=== PATIENT | male | born 1975 | race Caucasian/White ===

== ENCOUNTER 2019-10-12 06:52 | Emergency (ER) | payer OTHER, SELFPAY ==
[2019-10-12 06:58] VITALS: BP 134/85; PULSE 87; RESP 20; TEMP 36.6; O2SAT 99
--- NOTE | 2019-10-12 07:07 | ED.GENADULT ---
HPI - General Adult General Chief complaint: Extremity Injury, Upper Stated complaint: messed my shoulder up Time Seen by Provider: 10/12/19 06:57 Source: patient Mode of arrival: ambulatory Limitations: no limitations History of Present Illness HPI narrative: Patient presents to the emergency department for evaluation of left shoulder pain. Shoulder pain began yesterday, after the patient had a fall on a construction site, landing with his left arm bent, and experiencing pain in his left shoulder. Patient has had good range of motion since yesterday, denies any numbness, does report some very mild tingling in the left hand. Patient is right-hand dominant. He denies head trauma or loss of consciousness. No neck, chest, back or abdominal pain. No difficulty with ambulation. Patient has been able to move the left shoulder, but reports pain is exacerbated when he tries to raise it above his head. He denies any bruising or deformity. No lacerations. No history of injury to the shoulder in the past. Related Data Allergies Allergy/AdvReac Type Severity Reaction Status Date / Time No Known Allergies Allergy Verified 10/12/19 07:07 Review of Systems Review of Systems: Narrative: CONSTITUTIONAL: Denies fever EYES: Denies visual changes CARDIOVASCULAR: Denies chest pain RESPIRATORY: Denies cough or dyspnea. GASTROINTESTINAL: Denies abdominal pain SKIN: Denies rash or itching. 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 HEAD: Normocephalic, atraumatic. EYES: 2+ PERRLA and EOMI. ENT: Nares clear, no rhinorrhea or epistaxis. Mucous membranes moist. NECK: Supple. No cervical midline tenderness. CHEST: Clear to auscultation. No respiratory distress. No chest wall tenderness. HEART: Regular rate and rhythm. No murmur heard. Normal peripheral pulses. ABDOMEN: Soft, nontender, nondistended, normal active bowel sounds. EXTREMITIES: No edema or deformity. Intact sensation over the deltoid. Full abduction to 90 degrees. Past 90 degrees does elicit some pain in the left shoulder. Internal and external rotation is intact without limitation. Strength is 5 out of 5 in the left upper extremity. No tenderness along the clavicle or scapula. Full flexion and extension of the left elbow without pain, no deformity. Radial pulses 2+. Intact sensation, median, ulnar, radial nerve distribution. SKIN: Warm, dry, no rash. NEURO: No focal deficits. Alert and oriented x3 Course Course Emergency Course: Patient with fall and seemingly has left shoulder strain/muscle impingement. Patient obviously not dislocated. He has intact internal nor external rotation. He has no osseous tenderness along the clavicle, scapula, cervical spine. Patient without other injury or complaints after the fall yesterday. Share decision-making occurred with patient, I do feels injury is consistent with partial rotator cuff injury, muscle impingement. Patient advised to take ibuprofen and Tylenol to help with pain. He declined an x-ray in the ER. I did explain that without an x-ray cannot definitively proven osseous injury, although I do suspect one is not likely. Patient was given prescription for ibuprofen and Tylenol, given PCP and orthopedic surgery follow-up should his symptoms persist. Vital Signs Vital signs: Vital Signs Temperature 36.6 C 10/12/19 06:58 Pulse Rate 87 10/12/19 06:58 Respiratory Rate 20 10/12/19 06:58 Blood Pressu
== END 2019-10-12 07:41 | disposition home or self-care (01) ==
LOC: ANHED 07:25
PROVIDERS: Emergency Provider Emergency Medicine
DX: S43.422A Sprain of left rotator cuff capsule, initial encounter (principal); F17.200 Nicotine dependence, unspecified, uncomplicated; W19.XXXA Unspecified fall, initial encounter
CPT/HCPCS: 99283

== ENCOUNTER 2020-02-23 16:21 | Emergency (ER) | payer SELFPAY ==
[2020-02-23 16:38] VITALS: BP 112/65; PULSE 75; RESP 16; TEMP 36.2; O2SAT 100
--- NOTE | 2020-02-23 16:49 | ED.GENADULT ---
HPI - General Adult General Chief complaint: Skin/Abscess/Foreign Body Stated complaint: RASH ON LEGS Time Seen by Provider: 02/23/20 16:49 Source: patient and RN notes reviewed Mode of arrival: ambulatory Limitations: no limitations History of Present Illness HPI narrative: This is a pleasant 44 years old male presented office for evaluation of recurrent skin lesion on his extremities and torso. He had this similar issue off and on for the last few years and sometimes, but most of the time he requires an antibiotic and prednisone. He contributed his lesions to being outside in the heat and sweaty. He does not have insurance to seek care from Derm or PCP. He has tried bleach baths in the past which make it worse. Admits to history of MRSA in the past. 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 Denies sick contact. Denies new medication, lotion or cloths. I reviewed patient's previous visit: History of Present Illness Date Seen by EDP: Jun 10, 2019 Time Seen by EDP: 16:50 Chief complaint: skin rash Dictation/Comment 44 year old male presents to express care with 2 week duration of scattered red papules and pustules on skin of chest, back, legs, arms which are itchy. Patient states that he recently changed bath soap from his normal dial to a cheap body shampoo just prior to breaking out with these lesions. Patient states that he has had this type of rash before and he was told that it was a form of a form of a folliculitis and he received some antibiotics and it cleared up states has had MRSA in past.Patient denies any known fevers, chill or sweats, states that he has taken some Tylenol for just generalized. 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 Mode of Arrival: Other Related Data Allergies Allergy/AdvReac Type Severity Reaction Status Date / Time No Known Allergies Allergy Verified 10/12/19 07:07 Review of Systems Review of Systems: Narrative: CONSTITUTIONAL: Denies fever or feeling ill ENT: Denies congestion CARDIOVASCULAR: Denies chest pain, palpitation RESPIRATORY: Denies dyspnea GASTROINTESTINAL: Denies abdominal pain, nausea, vomiting, diarrhea. GENITOURINARY: Denies urinary symptoms or penile lesions SKIN: Reports painful lesions that look like small pimples throughout his extremities, torso and upper arms. Reports lesions itchiness at times. 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 There is no relevant family history pertinent to the presenting complaint. Exam Narrative: Exam Narrative: GENERAL: This is a well-nourished, well-developed patient, in no apparent distress. THROAT: Mucous membranes moist, posterior pharynx clear. NECK: Neck supple, non-tender without lymphadenopathy, masses or thyromegaly. CARDIOVASCULAR: Regular rate and rhythm without murmurs, gallops, or rubs. RESPIRATORY: Clear to auscultation. Breath sounds equal bilaterally. No wheezes, rales, or rhonchi. GASTROINTESTINAL: Abdomen soft, non-tender, nondistended. Bowel sounds are active. No hepato-splenomegaly, or palpable masses. No guarding. SKIN: No rash on face, scatter mucular-erythema noted in front and back torso, lower extremities predominantly on his thighs noted scatter pustules and nodules lesion with slight tenderne
== END 2020-02-23 17:10 | disposition home or self-care (01) ==
PROVIDERS: Emergency Provider Nurse Practitioner
DX: L73.9 Follicular disorder, unspecified (principal); F17.210 Nicotine dependence, cigarettes, uncomplicated
CPT/HCPCS: 99213; G0463

== ENCOUNTER 2020-10-30 08:21 | Emergency (ER) | payer OTHER, SELFPAY ==
--- NOTE | 2020-10-30 08:28 | ED.SKABFB ---
HPI - Skin/Abscess/Foreign Bdy General Chief complaint: Skin/Abscess/Foreign Body Stated complaint: Rash Time Seen by Provider: 10/30/20 08:35 Source: patient, RN notes reviewed and old records reviewed Mode of arrival: ambulatory Limitations: no limitations History of Present Illness HPI narrative: 45-year-old male presents to [facility] with complaints of ongoing rash to his chest and axilla. first episode about 5 years ago. Was seen here 6 months ago approximately with the same complaint. Patient reports that after the clindamycin and the prednisone had cleared up for several weeks. Has been unable to follow-up with a primary or a pension agent due to insurance issues. Related Data Allergies Allergy/AdvReac Type Severity Reaction Status Date / Time No Known Allergies Allergy Verified 10/12/19 07:07 Review of Systems Review of Systems: Narrative: CONSTITUTIONAL: Denies fever, chills, or sweats. EYES: Denies visual changes, redness, or discharge. ENT: Denies rhinorrhea, congestion, sore throat, or otalgia. CARDIOVASCULAR: Denies chest pain, palpitations, or edema. RESPIRATORY: Denies cough or dyspnea. GASTROINTESTINAL: Denies abdominal pain, nausea, vomiting, or diarrhea. GENITOURINARY: Denies dysuria or hematuria. SKIN: Reports rash. Denies itching. MUSCULOSKELETAL: Denies back pain, joint pain, or myalgia. NEUROLOGIC: Denies headache, numbness, or weakness. PSYCHIATRIC: Denies anxiety or depression. All other systems reviewed are negative, except as documented in HPI. 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 There is no relevant family history pertinent to the patient complaint. Exam Narrative: Exam Narrative: GENERAL: This is a well-nourished, well-developed patient, in no apparent distress. HEAD: normocephalic, atraumatic. EYES: PERRL. Sclera clear/white. Vision is grossly intact. EARS: External ears normal. NECK: Neck supple, non-tender without lymphadenopathy, masses or thyromegaly. CARDIOVASCULAR: Regular rate and rhythm without murmurs, gallops, or rubs. RESPIRATORY: Clear to auscultation. Breath sounds equal bilaterally. No wheezes, rales, or rhonchi. GASTROINTESTINAL: Abdomen soft, non-tender, nondistended. Bowel sounds are active. No hepato-splenomegaly, or palpable masses. No guarding. SKIN: warm, intact. good texture and turgor. Chest and abdomen most scabbed over areas without fluctuance. 4 cm x 4 cm circular red area, warm to touch without firmness or fluctuant area. Left axilla 1 by half centimeter firm mildly fluctuant area noted. On his back and abdomen very dry flaky skin noted NEURO: awake, alert, and oriented to person, place and time. There were no obvious focal neurologic abnormalities. EXTREMITIES: No clubbing, cyanosis, or edema. BACK: Nontender without deformity. Course Vital Signs Vital signs: Vital Signs Temperature 96.7 F L 10/30/20 08:37 Pulse Rate 67 10/30/20 08:37 Respiratory Rate 16 10/30/20 08:37 Blood Pressure 125/75 10/30/20 08:37 Pulse Oximetry 99 10/30/20 08:37 Temperature 96.7 F L 10/30/20 08:37 Pulse Rate 67 10/30/20 08:37 Respiratory Rate 16 10/30/20 08:37 Blood Pressure 125/75 10/30/20 08:37 Pulse Oximetry 99 10/30/20 08:37 Reviewed, within defined limits Procedures Abscess I/D upper extremity: Date of Incision: 10/30/20 Time of Incision: 08:45 Side (if applicable): left Technique: needle aspiration Irrigation: No I&D Results: Pus and Blood Abcess I&D Additional Comments: Very minimal amount of pus from ne
[2020-10-30 08:37] VITALS: BP 125/75; PULSE 67; RESP 16; TEMP 35.9; O2SAT 99
== END 2020-10-30 08:55 | disposition home or self-care (01) ==
PROVIDERS: Emergency Provider Nurse Practitioner
DX: L73.9 Follicular disorder, unspecified (principal); L02.412 Cutaneous abscess of left axilla; F17.200 Nicotine dependence, unspecified, uncomplicated
CPT/HCPCS: 10160; 87070; 87075; 87147; 87186; 87205; 99213; G0463

== ENCOUNTER 2021-03-21 14:51 | Emergency (ER) | payer SELFPAY ==
[2021-03-21 14:59] VITALS: BP 113/67; PULSE 88; RESP 16; TEMP 36.4; O2SAT 99
[2021-03-21 15:04] VITALS: BP 113/67; PULSE 88; RESP 16; TEMP 36.4; O2SAT 99
--- NOTE | 2021-03-21 15:28 | ED.GENADULT ---
HPI - General Adult General Chief complaint: Skin/Abscess/Foreign Body Stated complaint: abscess stephanie legs/arms Time Seen by Provider: 03/21/21 15:28 Source: patient and RN notes reviewed Mode of arrival: ambulatory Limitations: no limitations History of Present Illness HPI narrative: 45-year-old male presents with complaints of lesions throughout arms and legs with redness, tenderness, and swelling for the past year. Gabriel reports increasing symptoms over the past 2 weeks. Bleach baths and alcohol wipes without relief. Tender to touch. No drainage. History of skin problems. No fever or chills. No abdominal pain, nausea, and vomiting. Tolerating po liquids well. Remains active. The patient reports he has not been diagnosed with COVID-19. The patient reports he is not waiting for the results of a COVID-19 lab test. The patient reports he does not have a new or worsening cough or shortness of breath. Denies chest pain. The patient reports he does not have any rhinorrhea, congestion, sore throat, loss of taste or smell, and diarrhea. Denies recent traveling. Denies concerns for COVID-19 or exposures. At this time, the patient is not suspected of having COVID-19. Some parts of this dictation were generated by voice recognition software and may contain typographical and/or grammatical inaccuracies. Related Data Allergies Allergy/AdvReac Type Severity Reaction Status Date / Time No Known Allergies Allergy Verified 03/21/21 15:45 Review of Systems Review of Systems: Narrative: CONSTITUTIONAL: Denies fever, chills, sweats. EYES: Denies visual changes, redness, discharge. ENT: Denies rhinorrhea, congestion, sore throat, otalgia. CARDIOVASCULAR: Denies chest pain, palpitations, edema. RESPIRATORY: Denies dyspnea, wheezing, cough. GASTROINTESTINAL: Denies abdominal pain, nausea, vomiting, diarrhea. SKIN: Denies rash or itching. Complaints of lesions throughout arms and legs with redness, tenderness, and swelling. No drainage. MUSCULOSKELETAL: Denies acute back pain, joint pain, or myalgia. NEUROLOGIC: Denies numbness or focal weakness. PSYCHIATRIC: Denies anxiety or depression. All systems reviewed & are unremarkable except as noted in HPI and below. [facility] Past Medical History Medical History (Updated 03/22/21 @ 00:00 by Background Daemon) Skin problem Surgical History Surgical History (Updated 03/21/21 @ 15:47 by MOSHE Warner) No significant past surgical history Family History Family History (Updated 03/21/21 @ 15:48 by MOSHE Warner) Father Diabetes mellitus Mother Alive and well Social History Social History (Updated 03/21/21 @ 15:48 by MOSHE Warner) Smoking packs per day: 0.5 Smoking cigarettes per day: 10.0 Years smoked: 20 Smoking pack-years: 10.00 Smoking status: Current every day smoker Tobacco type: cigarettes Second hand tobacco smoke exposure: Yes Alcohol intake: current Substance use: current Substance use type: marijuana Living arrangements: with family Occupation/Education: occupation 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 Please see the nursing chart for further information. There is no relevant family history pertinent to the presenting complaint. Exam Narrative: Exam Narrative: GENERAL: This is a well-nourished, well-developed patient, in no apparent distress. Talking in full sentences without deficit and ambulate with steady gait without dyspnea. HEAD: Normocephalic, atraumatic. EYES: PERRL. Sclera clear/white. Vision is grossly intact. NECK: Neck supple, non-tender without lymphadenopathy, masses, or thyromegaly. CARDIOVASCULAR: Regular rate and rhythm without murmurs, gallops, or rubs. RESPIRATORY: Clear to a
== END 2021-03-21 15:48 | disposition home or self-care (01) ==
PROVIDERS: Emergency Provider Nurse Practitioner Family
DX: L73.9 Follicular disorder, unspecified (principal); F17.210 Nicotine dependence, cigarettes, uncomplicated
CPT/HCPCS: 99213; G0463

== ENCOUNTER 2021-05-18 03:06 | Emergency (ER) | payer SELFPAY ==
[2021-05-18 03:15] VITALS: BP 101/86; PULSE 88; RESP 18; TEMP 36.7; O2SAT 100
--- NOTE | 2021-05-18 03:38 | ED.SKABFB ---
HPI - Skin/Abscess/Foreign Bdy General Chief complaint: Skin/Abscess/Foreign Body Stated complaint: abscess/rashes Time Seen by Provider: 05/18/21 03:18 History of Present Illness HPI narrative: Patient presents with multiple skin concerns. Patient reports he has an abscess in his right groin. Reports history of the same required I&D. Is been worse over the past few days and is not able to manage symptoms so came to the ER for evaluation. Denies any fevers, chills, nausea, vomiting. Also reports lesions on his feet. Patient reports he has been using topical antibiotics has not been effective for Ms. lesions on his feet are itching and irritating. Related Data Allergies Allergy/AdvReac Type Severity Reaction Status Date / Time No Known Allergies Allergy Verified 03/21/21 15:45 Review of Systems Review of Systems: CONSTITUTIONAL: Denies fever, chills, or sweats. EYES: Denies visual changes, redness, or discharge. ENT: Denies rhinorrhea, congestion, sore throat, or otalgia. CARDIOVASCULAR: Denies chest pain, palpitations, or edema. RESPIRATORY: Denies cough or dyspnea. GASTROINTESTINAL: Denies abdominal pain, nausea, vomiting, or diarrhea. GENITOURINARY: Denies dysuria or hematuria. SKIN: Denies rash or itching. MUSCULOSKELETAL: Denies back pain, joint pain, or myalgia. NEUROLOGIC: Denies headache, numbness, dizziness, or weakness. PSYCHIATRIC: Denies anxiety or depression. 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 HEAD: Normocephalic, atraumatic. EYES: PERRLA and EOMI. ENT: Nares clear, no rhinorrhea or epistaxis. Mucous membranes moist. NECK: Supple. No masses. No JVD EXTREMITIES: Normal range of motion. No edema. SKIN: 1 x 1 cm area of swelling with central purulent discharge with approximately 2 x 3 cm area of erythema is exquisitely tender in the right lateral aspect his groin. Patient has multiple erythematous scaly lesions on the bilateral feet with surrounding satellite areas of erythema NEURO: No focal deficits. Alert and oriented x3. PSYCH: Normal mood and affect. Course Vital Signs Vital signs: Vital Signs Temperature 36.7 C 05/18/21 03:15 Pulse Rate 88 05/18/21 03:15 Respiratory Rate 18 05/18/21 03:15 Blood Pressure 101/86 05/18/21 03:15 Pulse Oximetry 100 05/18/21 03:15 Temperature 36.7 C 05/18/21 03:15 Pulse Rate 78 05/18/21 03:56 Respiratory Rate 18 05/18/21 03:56 Blood Pressure 98/86 L 05/18/21 03:56 Pulse Oximetry 100 05/18/21 03:56 Procedures Abscess I/D lower extremity: Date of Incision: 05/18/21 Time of Incision: 03:32 Side (if applicable): right Sedation/analgesia: none Local Anesthetic: lidocaine 1% and with epi Amount of anesthesia used (mL): 4 Technique: incised with #11 blade Amount of fluid expressed (mL): 1 Irrigation: No Packing used?: none I&D Results: Pus and Blood
[2021-05-18 03:56] VITALS: BP 98/86; PULSE 78; RESP 18; O2SAT 100
== END 2021-05-18 04:00 | disposition home or self-care (01) ==
PROVIDERS: Emergency Provider Emergency Medicine
DX: L03.314 Cellulitis of groin (principal); B35.6 Tinea cruris; L02.612 Cutaneous abscess of left foot; L02.611 Cutaneous abscess of right foot; F17.210 Nicotine dependence, cigarettes, uncomplicated
CPT/HCPCS: 10060; 99283

== ENCOUNTER 2022-04-10 06:52 | Emergency (ER) | payer SELFPAY ==
--- NOTE | ~2022-04-10 | XR_ITS ---
EXAMINATION: XR hand RT min 3V DATE: 04/10/2022 07:33 INDICATION: Trauma to the right third digit, now with stiff finger. TECHNIQUE: Posteroanterior, oblique and lateral views of the right hand were obtained. COMPARISON: None. FINDINGS: Small nondisplaced intra-articular fracture along the palmar rim of the base of the right third middl e phalanx. Alignment remains essentially anatomic. No other fractures identified. Soft tissue swellin g about the third proximal interphalangeal joint. Joint spaces are normal. IMPRESSION: 1. Small nondisplaced intra-articular fracture at the palmar rim of the base of the right third middl e phalanx. Reviewed, dictated and finalized at location A. IMPRESSION: 1. Small nondisplaced intra-articular fracture at the palmar rim of the base of the right third middle phalanx.
[2022-04-10 06:54] VITALS: BP 132/84; PULSE 77; RESP 18; TEMP 36.4; O2SAT 98
--- NOTE | 2022-04-10 08:09 | ED.UPPEXIN ---
HPI - Extremity Injury (Upper) General Chief Complaint: Extremity Injury, Upper Stated Complaint: right finger injury Time Seen by Provider: 04/10/22 07:07 History of Present Illness HPI narrative: Pt smashed right third finger with hammer 4 days ago. Pt put splint on later that day but says the swelling and pain are worse today. Related Data Allergies Allergy/AdvReac Type Severity Reaction Status Date / Time No Known Allergies Allergy Verified 04/10/22 07:02 Review of Systems Review of Systems: All systems reviewed & are unremarkable except as noted in HPI and below PMFSH Past Medical History Medical History Skin problem Surgical History Surgical History No significant past surgical history Family History Family History Father Diabetes mellitus Mother Alive and well Social History Social History Smoking packs per day: 0.5 Smoking cigarettes per day: 10.0 Years smoked: 20 Smoking pack-years: 10.00 Smoking status: Current every day smoker Tobacco type: cigarettes Second hand tobacco smoke exposure: Yes Alcohol intake: current Substance use: current Substance use type: marijuana 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 Gender identity (if verbalized by the patient): Male Exam Const: General: healthy appearing Nutritional Appearance: well nourished Orientation/consciousness: patient oriented x3 Limitations: no limitations Neck: Neck: normal visual inspection Resp: Effort & Inspection: normal respiratory effort Cardio: Rate: regular rate Rhythm: regular rhythm Skin: General skin exam: normal color Rashes: no rashes Wounds: no wounds Neuro: General: patient oriented x3 and no focal motor deficits Speech: normal speech Extrem: Other: swelling and tenderness to right 3rd pip area Psych: Mental Status: mental status grossly normal Affect: normal affect Attitude: cooperative Course Vital Signs Vital signs: Vital Signs Temperature 97.5 F L 04/10/22 06:54 Pulse Rate 77 04/10/22 06:54 Respiratory Rate 18 04/10/22 06:54 Blood Pressure 132/84 04/10/22 06:54 Pulse Oximetry 98 04/10/22 06:54 Oxygen Delivery Room Air 04/10/22 06:54 Temperature 97.5 F L 04/10/22 06:54 Pulse Rate 77 04/10/22 06:54 Respiratory Rate 18 04/10/22 06:54 Blood Pressure 132/84 04/10/22 06:54 Pulse Oximetry 98 04/10/22 06:54 Oxygen Delivery Room Air 04/10/22 06:54 Discharge Plan Discharge Clinical Impression: Fracture of finger of right hand Patient Disposition: Home, Self-Care Condition: Stable Instructions: Antibiotic Form, Finger Fracture (ED) Prescriptions: New hydrocodone-acetaminophen 5-325 mg tablet 1 tablet PO Q6H PRN (Reason: pain) Qty: 10 0RF No Action cetirizine [Zyrtec] 10 mg tablet 10 mg PO DAILY 60 Days Qty: 60 0RF sulfamethoxazole-trimethoprim [Bactrim DS] 800-160 mg tablet 1 tablet PO Q12H Qty: 20 0RF mupirocin 2 % ointment 1 applic TOPICAL BID 5 Days Qty: 30 0RF prednisone 20 mg tablet 60 mg PO DAILY 5 Days Qty: 15 0RF clindamycin HCl 300 mg capsule 450 mg PO Q8H 5 Days Qty: 23 0RF clotrimazole 1 % cream 1 applic topical BID 28 Days Qty: 30 0RF Follow-up/Referrals: Sammy Du MD [Physician] - PHYSICIAN,POULTRY SLAUGHTERER [Primary Care Provider] -
[2022-04-10 08:26] VITALS: BP 113/73; PULSE 71; RESP 14; O2SAT 97
== END 2022-04-10 08:28 | disposition home or self-care (01) ==
PROVIDERS: Emergency Provider Emergency Medicine
DX: S62.642A Nondisplaced fracture of proximal phalanx of right middle finger, initial encounter for closed fracture (principal); W27.0XXA Contact with workbench tool, initial encounter
CPT/HCPCS: 73130; 99283

== ENCOUNTER → 2023-10-08 14:21 | Outpatient (CLI) | payer SELFPAY ==
--- NOTE | ~2023-10-08 | XR_ITS ---
EXAMINATION: XR chest 2V 10/08/2023 14:38 INDICATION: Tobacco use PROCEDURE: 2 view chest COMPARISON: No prior studies for comparison. FINDINGS: The lungs are clear. The cardiomediastinal silhouette is within normal limits. There are no pleural effusions. There is no pneumothorax suspected. IMPRESSION: 1: NO ACUTE CARDIOPULMONARY DISEASE. Reviewed, dictated and finalized at location B. EM SUPPORT ANALYST
== END ==
LOC: EXPCRAD 14:28
PROVIDERS: PCP Emergency Medicine; Visit Provider Emergency Medicine
DX: Z72.0 Tobacco use (principal)
CPT/HCPCS: 71046

== ENCOUNTER → 2024-11-24 14:56 | Outpatient (CLI) | payer OTHER, SELFPAY ==
--- NOTE | ~2024-11-24 | XR_ITS ---
CHEST RADIOGRAPH, PA AND LATERAL CLINICAL HISTORY: chest congestion s/p flu x 7 days smoker . COMPARISON: 10/08/2023 TECHNIQUE: PA and lateral views of the chest. FINDINGS The cardiomediastinal silhouette is unremarkable. The lungs are clear. Visualized osseous structures and soft tissues are unremarkable. IMPRESSION: No focal infiltrate or effusion. Reviewed, dictated and finalized at location A.
== END ==
LOC: EXPCRAD 15:00
PROVIDERS: PCP Emergency Medicine; Visit Provider Emergency Medicine
DX: R09.89 Other specified symptoms and signs involving the circulatory and respiratory systems (principal); J11.1 Influenza due to unidentified influenza virus with other respiratory manifestations; F17.200 Nicotine dependence, unspecified, uncomplicated
CPT/HCPCS: 71046